=== PATIENT | male | born 1960 | race African-American/Black ===

== ENCOUNTER 2020-06-06 18:09 | Inpatient (IN) | payer BC, OTHER ==
[2020-06-06] MEDS ORDERED: Aspirin 325 MG TAB PO SCH (20:45)
--- NOTE | 2020-06-06 21:05 | PDOC.EVN ---
Event Note - Event Note Event Note: [id number] HP
--- NOTE | 2020-06-06 23:21 | HP ---
CHIEF COMPLAINT: Dizziness and vomiting. HISTORY OF PRESENT ILLNESS: Mr. Clinton is a 59-year-old male with past medical history of cerebrovascular accident, hypertension, hyperlipidemia, presented to an outside emergency room with dizziness and vomiting. The patient states that he was sleeping in his [employer] recliner, suddenly started having severe sense of weakness with disorientation and spinning. He started vomiting and vomiting started for several hours. He had extensive weakness and dis-coordination, unable to walk normally with unsteady gait. The patient had stroke few years ago and had a similar presentation. Workup in the emergency room including CT of the brain, CTA brain and neck, no acute finding. Given patient's presentation, requested to transfer the patient to our medical facility for further management. PAST MEDICAL HISTORY: 1. Hypertension. 2. Hyperlipidemia. 3. CVA, 2017. PAST SURGICAL HISTORY: Foot surgery. FAMILY HISTORY: Brother had cerebrovascular accident/heart disease. SOCIAL HISTORY: The patient currently uses tobacco, smokes cigarettes. He drinks socially every week. HOME MEDICATIONS: Please see home medication reconciliation form for updated medications. ALLERGIES: NO KNOWN ALLERGIES. REVIEW OF SYSTEMS: Review of 14 systems negative except what is mentioned in the history of present illness. PHYSICAL EXAMINATION: GENERAL: The patient is awake, alert, not in acute distress. VITAL SIGNS: Blood pressure 122/67, pulse is 72, respiratory rate is 18, temperature is 98.2, oxygen saturation is 98% on room air. HEAD AND NECK: Normocephalic, atraumatic. Neck is supple. No JVD. CHEST: Fair bilateral air entry. HEART: S1, S2. Regular. ABDOMEN: Soft, nontender. Bowel sounds present. NEURO: The patient is awake, alert, oriented. Speech is normal. No focal motor deficits. No focal sensory deficits. While patient being ambulated in the emergency room, the patient had trouble with ambulation, feeling extremely and almost falling. LABORATORY DATA: WBC 8.3, hemoglobin 13.6, platelets 227. Sodium 137, potassium 4.2, BUN is 15, creatinine 0.8, glucose 136. INR is 1.1. CTA of the head and neck, no evidence of significant stenosis. CT of the brain, no acute intracranial abnormality. Encephalomalacia in the right cerebellar hemisphere related to remote infarction. ASSESSMENT: 1. Cerebrovascular accident, ??, posterior circulation, ? 2. Hypertension. 3. Hyperlipidemia. 4. History of cerebellar stroke. 5. Family history of cerebrovascular accident. PLAN: 1. Admit. 2. Frequent neuro checks. 3. Telemetry monitoring. 4. Aspirin. 5. MRI of the brain. 6. 2D echo. 7. Consult Neurology in a.m. for evaluation and further recommendations. 8. Consult PT, OT for eval and treat. 9. Reconcile home medications. 10. Deep venous thrombosis prophylaxis as appropriate. 11. Expected length of stay at least 1 midnight if patient is stable and further workup negative. Job ID: [id number]
[2020-06-07] MEDS: Sodium Chloride 0.9% 1,000 ML IV SCH ×4 (01:45→23:25)
[2020-06-07] MEDS: Atorvastatin Calcium 40 MG TAB PO SCH ×2 (01:46→21:50)
[2020-06-07 01:55] VITALS: BMI 41.9
[2020-06-07 05:49] LABS: Cardiac Risk 3.3 (Less than 4.5)
[2020-06-07] MEDS: Aspirin 325 mg Enteric Coated Tablet PO SCH (08:51)
[2020-06-07] MEDS: Enoxaparin Sodium 30 MG/0.3 ML SYRINGE SC SCH (08:51)
[2020-06-07] MEDS ORDERED: FLU VACC QS2020-21(6MOS UP)/PF 60 MCG/0.5 ML SYRINGE IM ONE (09:00)
[2020-06-07] MEDS ORDERED: Valsartan 80 MG TAB PO SCH (09:45)
[2020-06-07] MEDS ORDERED: Hydrochlorothiazide 25 MG TAB PO SCH (09:45)
--- NOTE | 2020-06-07 10:08 | MRI ---
MRI Brain WO Con History: Dizziness. Comparison: MRI brain 2017. CT brain prior day. Findings: Old right anterior superior cerebellar infarction. On the diffusion weighted imaging sequen ce there are no abnormal foci of infarct. This is confirmed on the ADC map. On the susceptibility weighted imaging seen with there is no hemorrhage. No midline shift. No mass effect. Corpus callosum is intact. Globes are intact. Marrow signal of the clivus is maintained. Impression: No acute hemorrhage or infarct. Old right superior cerebellar infarction.
[2020-06-07 10:18] LABS: Bacteria/HPF None Seen HPF (None Seen); Bilirubin Negative (Negative); Blood, Urine 2+ (Negative); Clarity Clear (Clear); Glucose, Urine (Dipstick) Normal (Negative); Ketone, Urine Negative (Negative); Leukocyte Negative Leu/uL (Negative); Nitrite Negative (Negative); Protein, Urine (Dipstick) 20 mg/dL (Neg-Trace); Specific Gravity, Urine 1.026 (1.002-1.036); Squamous Epithelial None Seen HPF (0-3); Urobilinogen Normal mg/dL (Less than 2); WBC/HPF 0-3 HPF (0-3)
--- NOTE | 2020-06-07 11:08 | PDOC.HOSPP ---
- Subjective Encounter Date: 06/07/20 Encounter Time: 10:30 Subjective: feels good now, no dizziness or vomiting is eating now, has stood up for passing urine no weakness in any extremity or chest pain or palp says his urine is a bit high colored - Objective Vital Signs & Weight: Vital Signs (12 hours) Temp Pulse Resp BP BP BP Pulse Ox 06/07/20 08:54 154/87 H 185/94 H 06/07/20 07:53 98 F 71 16 131/77 95 06/07/20 04:58 98.1 F 69 16 144/72 H 97 Weight Weight 309 lb 6.4 oz I&O: 06/06/20 06/07/20 06/08/20 06:59 06:59 06:59 Intake Total 1386 Output Total 0 Balance 1386 Hospitalist ROS - Medication Medications: Active Medications Generic Name Dose Route Start Last Admin Trade Name Freq PRN Reason Stop Dose Admin Aspirin 325 mg 06/07/20 09:00 06/07/20 08:51 Aspirin 325 Mg Enteric Coated Tablet PO 325 mg DAILY AURE Administration Atorvastatin Calcium 40 mg 06/06/20 21:00 06/07/20 01:46 Atorvastatin Calcium 40 Mg Tab PO Not Given HS AURE Enoxaparin Sodium 30 mg 06/07/20 09:00 06/07/20 08:51 Enoxaparin Sodium 30 Mg/0.3 Ml Syringe SC 30 mg 0900 AURE Administration Hydrochlorothiazide 25 mg 06/07/20 09:45 06/07/20 10:53 Hydrochlorothiazide 25 Mg Tab PO 06/07/20 12:00 25 mg NOW AURE Administration Sodium Chloride 1,000 mls @ 100 mls/hr 06/06/20 20:45 06/07/20 01:45 Normal Saline 0.9% IV 1,000 mls .Q10H AURE Administration Valsartan 320 mg 06/07/20 09:45 06/07/20 10:52 Valsartan 80 Mg Tab PO 06/07/20 12:00 320 mg NOW AURE Administration - Exam General Appearance: awake alert Eye: PERRL, anicteric sclera ENT: no oropharyngeal lesions, moist mucosa Neck: supple, no JVD Heart: RRR, no murmur Respiratory: no wheezes, no rales Gastrointestinal: soft, non-tender, non-distended, normal bowel sounds Extremities: no cyanosis, no edema Neurological: cranial nerve grossly intact, no focal deficits Psychiatric: normal affect, A&O x 3 Hosp A/P (1) Dizziness Code(s): R42 - DIZZINESS AND GIDDINESS Status: Resolved (2) Nausea & vomiting Code(s): R11.2 - NAUSEA WITH VOMITING, UNSPECIFIED Status: Resolved (3) H/O: CVA (cerebrovascular accident) Code(s): Z86.73 - PRSNL HX OF TIA (TIA), AND CEREB INFRC W/O RESID DEFICITS Status: Chronic (4) Obesity Code(s): E66.9 - OBESITY, UNSPECIFIED Status: Chronic Qualifiers: Obesity classification: adult class 3 (BMI >= 40) Body mass index: BMI 40.0-44.9 (5) Tobacco abuse Code(s): Z72.0 - TOBACCO USE Status: Chronic (6) Dyslipidemia Code(s): E78.5 - HYPERLIPIDEMIA, UNSPECIFIED Status: Chronic (7) Hypertension Code(s): I10 - ESSENTIAL (PRIMARY) HYPERTENSION Status: Chronic Qualifiers: Hypertension type: essential hypertension Qualified Code(s): I10 - Essential (primary) hypertension - Plan MRI does not reveal any ac cva, has old left cerebellar infarct home meds for htn hemo/neurostable likely got dehydrated with vomiting, continue iv fluids ruq usg to r/o cholecystitis may dc home if w/u is -ve and cleared by neurology to amb as tolerated
[2020-06-07 11:42] LABS: SARS-CoV-2 MS2 Positive; SARS-CoV-2 N Gene Negative; SARS-CoV-2 S Gene Negative; SARS-CoV-2 by NAA Not Detected (NotDetected); SARS-CoV-2 orf1ab Negative
--- NOTE | 2020-06-07 16:34 | ULT ---
GALLBLADDER ULTRASOUND: History: Right upper quadrant pain FINDINGS: Real-time imaging of the right upper quadrant shows some questionable minimal sludge within the gallb ladder. The liver shows diffuse increased echogenicity and measures 21.4 cm in length. The common marylou t is 4 mm. Right kidney is normal in size and unobstructed. The pancreas is partially obscured. IMPRESSION: 1. Fatty change of the liver which is slightly enlarged. 2. Questionable minimal gallbladder sludge. POS: OFF
[2020-06-07] MEDS ORDERED: Sodium Chloride 0.9% 500 ML IV SCH (19:00)
[2020-06-07 19:12] LABS: Amphetamine Not Detected (NotDetected); Barbiturates Screen Not Detected (NotDetected); Benzodiazepine Screen Not Detected (NotDetected); Cocaine Metabolite Screen Not Detected (NotDetected); Medtox Control Line Valid? VALID (VALID); Medtox Reader # READER 4; Methadone Not Detected (NotDetected); Methamphetamine Not Detected (NotDetected); Opiate Screen Not Detected (NotDetected); Oxycodone Screen Not Detected (NotDetected); Phencyclidine (PCP) Not Detected (NotDetected); THC/Cannabinoid Screen Not Detected (NotDetected); Tricyclic Screen Not Detected (NotDetected)
[2020-06-07 19:19] LABS: Acetaminophen Less than 6.0 mcg/mL (10.0-30.0); Alcohol Less than 10 mg/dL (Less than 10); Salicylate Less than 8.0 mg/dL (15.0-30.0)
--- NOTE | 2020-06-07 19:38 | CON ---
NEUROLOGY CONSULTATION DATE OF CONSULTATION: 06/07/2020 REASON FOR CONSULTATION: Transient ischemic attack/posterior circulation TIA. HISTORY OF PRESENT ILLNESS: Mr. Clinton is a 59-year-old male with medical history significant for prior CVA in 2017, hypertension, hyperlipidemia presented from an outside emergency room with dizziness as if the room spinning in front of his eyes and vomiting. Per the patient, he was sleeping on his [employer] recliner when suddenly he had a sense of weakness and the room spinning in front of his eyes. This was followed by vomiting for several hours after which he became disoriented and extremely weak and has an unsteady gait. The patient denies focal weakness, focal paresthesias, headache, chest pain, abdominal pain, problems with speech or swallowing, or any abnormal movements associated with the episode. He was brought to the emergency room where a CT scan was done, which was negative for acute intracranial pathology. CT of the head and neck was also unremarkable. Per patient, his symptoms were similar to when he had a CVA in 2017 with a superior cerebellar infarct. He was admitted for further management. REVIEW OF SYSTEMS: All systems were reviewed and were negative except the pertinent positives and negatives mentioned in the HPI. PAST MEDICAL HISTORY: Hypertension, hyperlipidemia, CVA in 2017. PAST SURGICAL HISTORY: Foot surgery. FAMILY HISTORY: Brother had cerebrovascular accident and coronary artery disease. SOCIAL HISTORY: The patient drinks every week. He uses tobacco and smokes cigarettes. ALLERGIES: NO KNOWN DRUG ALLERGIES Vital Signs & Weight: Vital Signs (12 hours) Temp Pulse Resp BP BP BP Pulse Ox 06/07/20 08:54 154/87 H 185/94 H 06/07/20 07:53 98 F 71 16 131/77 95 06/07/20 04:58 98.1 F 69 16 144/72 H 97 Weight Weight 309 lb 6.4 oz I&O: 06/06/20 06/07/20 06/08/20 06:59 06:59 06:59 Intake Total 1386 Output Total 0 Balance 1386 Generic Name Dose Route Start Last Admin Trade Name Freq PRN Reason Stop Dose Admin Aspirin 325 mg 06/07/20 09:00 06/07/20 08:51 Aspirin 325 Mg Enteric Coated Tablet PO 325 mg DAILY AURE Administration Atorvastatin Calcium 40 mg 06/06/20 21:00 06/07/20 01:46 Atorvastatin Calcium 40 Mg Tab PO Not Given HS [facility] Enoxaparin Sodium 30 mg 06/07/20 09:00 06/07/20 08:51 Enoxaparin Sodium 30 Mg/0.3 Ml Syringe SC 30 mg 0900 AURE Administration Hydrochlorothiazide 25 mg 06/07/20 09:45 06/07/20 10:53 Hydrochlorothiazide 25 Mg Tab PO 06/07/20 12:00 25 mg NOW AURE Administration Sodium Chloride 1,000 mls @ 100 mls/hr 06/06/20 20:45 06/07/20 01:45 Normal Saline 0.9% IV 1,000 mls .Q10H AURE Administration Valsartan 320 mg 06/07/20 09:45 06/07/20 10:52 Valsartan 80 Mg Tab PO 06/07/20 12:00 320 mg NOW AURE Administration PHYSICAL EXAMINATION: General Appearance: awake alert Eye: PERRL, anicteric sclera ENT: no oropharyngeal lesions, moist mucosa Neck: supple, no JVD Heart: RRR, no murmur Respiratory: no wheezes, no rales Gastrointestinal: soft, non-tender, non-distended, normal bowel sounds Extremities: no cyanosis, no edema Neurological: Mental status, the patient is alert and oriented to person, place, and time. Recent and remote memory intact. Speech is clear. Motor muscle tone and bulk are normal. Strength 5/5 bilaterally. Sensory intact. Cerebellar, finger-nose testing intact. Gait deferred due to safety reason. DATA REVIEWED: I reviewed the labs and the CT of the brain, which was negative for acute intracranial pathology. MRI of the brain reviewed, which was negative for acute intracranial pathology, but did show encephalomalacia in the right cerebellar hemisphere related to remote infarction. CT of the head and neck was unremarkable. ASSESSMENT AND PLAN: (1) Dizziness Code(s): R42 - DIZZINESS AND GIDDINESS Status: Resolved (2) Nausea & vomiting Code(s): R11.2 - NAUSEA WITH VOMITING, UNSPECIFIED Status: Resolved (3) H/O: CVA (cerebrovascular accident) Code(s): Z86.73 - PRSNL HX OF TIA (TIA), AND CEREB INFRC W/O RESID DEFICITS Status: Chronic (4) Obesity Code(s): E66.9 - OBESITY, UNSPECIFIED Status: Chronic Qualifiers: Obesity classification: adult class 3 (BMI >= 40) Body mass index: BMI 40.0-44.9 (5) Tobacco abuse Code(s): Z72.0 - TOBACCO USE Status: Chronic (6) Dyslipidemia Code(s): E78.5 - HYPERLIPIDEMIA, UNSPECIFIED Status: Chronic (7) Hypertension Code(s): I10 - ESSENTIAL (PRIMARY) HYPERTENSION Status: Chronic Qualifiers: Hypertension type: essential hypertension Qualified Code(s): I10 - Essential (primary) hypertension Mr. Clinton is a 59-year-old male with history significant for prior cerebrovascular accident, hypertension, hyperlipidemia, presented with an episode of dizziness with nausea and vomiting, most likely posterior circulation transient ischemic attack. 1. MRI of the brain reviewed, which was negative for acute intracranial pathology. 2. CT of the head and neck was done which did not reveal hemodynamically significant stenosis. 3. 2D echocardiogram shows ejection fraction of 60% to 65%, no thrombus or PFO. Continue neuro checks every 4 hours. 4. Continue telemetry. 5. Strict control of blood pressure and blood glucose blood glucose. 6. Continue home medications. 7. Continue medical management per primary team,. 8. PT/OT/speech. 9. The patient has been compliant with aspirin, so switched to Plavix. 10. Start high-intensity statin for secondary stroke prevention. 11. We will continue to follow. Thank you for the consult. Job ID: [id number]
[2020-06-08] MEDS: Sodium Chloride 0.9% 1,000 ML IV SCH (04:17)
[2020-06-08] MEDS ORDERED: Clopidogrel Bisulfate 75 MG TAB PO SCH (09:00)
[2020-06-08] MEDS ORDERED: Valsartan 80 MG TAB PO SCH (09:00)
[2020-06-08] MEDS ORDERED: Ezetimibe 10 MG TAB PO SCH (09:00)
[2020-06-08] MEDS ORDERED: Hydrochlorothiazide 25 MG TAB PO SCH (09:00)
[2020-06-08] MEDS: Enoxaparin Sodium 30 MG/0.3 ML SYRINGE SC SCH (11:36)
[2020-06-08] MEDS: Aspirin 325 mg Enteric Coated Tablet PO SCH (11:36)
--- NOTE | 2020-06-08 11:37 | NM ---
Exam: Nuclear medicine cardiac stress with EF and wall motion HISTORY: Coronary disease. Chest pain. Smoker. TECHNIQUE: Stress imaging only was performed. Patient was administered 30.40 mCi of technetium 99m se stamibi intravenously FINDINGS: Homogeneous distribution of the radiotracer End-diastolic volume is 140 mL End-systolic volume is 67 mL Cardiac gating: Normal wall motion and thickening. 52% ejection fraction IMPRESSION: 1. Homogeneous distribution of the radiotracer. 2. Left ventricular prominence 3. 52% ejection fraction
--- NOTE | 2020-06-08 12:23 | PDOC.NEUPN ---
- Subjective Encounter Date: 06/08/20 Subjective: Mr. Clinton feels better today and denies any new complaints. - Objective Vital Signs & Weight: Vital Signs (12 hours) Temp Pulse Resp BP Pulse Ox 06/08/20 11:46 98 F 80 16 146/91 H 97 06/08/20 08:00 98.3 F 60 16 131/69 98 06/08/20 03:18 97.9 F 67 20 118/73 96 Weight Weight 309 lb 6.4 oz I&O: 06/07/20 06/08/20 06/09/20 06:59 06:59 06:59 Intake Total 1386 3928 360 Output Total 0 2750 Balance 1386 1178 360 Radiology Reviewed by me: Yes EKG Reviewed by me: Yes ROS - Review of Systems Constitutional: denies: fever, chills, sweats, weakness, malaise, other Eyes: denies: pain, vision change, conjunctivae inflammation, eyelid inflammation, redness, other ENT: denies: ear pain, ear discharge, nose pain, nose discharge, nose congestion, mouth pain, mouth swelling, throat pain, throat swelling, other Respiratory: denies: cough, dry, shortness of breath, hemoptysis, SOB with excertion, pleuritic pain, sputum, wheezing, other Cardiovascular: reports: Syncope. denies: no pertinent history, AFIB, CAD, CHF, HTN, [place], Hyperlipidemia, Mitral valve stenosis, Aortic stenosis, Valve insufficiency, Pulmonary hypertension, Other Gastrointestinal: reports: nausea, vomiting, other (dizziness) Genitourinary: denies: dysuria, frequency, incontinence, hematuria, retention, other Musculoskeletal: denies: neck pain, shoulder pain, arm pain, back pain, hand pain, leg pain, foot pain, other Skin: denies: rash, lesions, eloy, bruising, other Neurological: denies: weakness, numbness, incoordination, change in speech, confusion, seizures, other All Systems: All other systems reviewed; all pertinent +/- noted in HPI/Subj - Medication Medications: Active Medications Generic Name Dose Route Start Last Admin Trade Name Freq PRN Reason Stop Dose Admin Aspirin 325 mg 06/07/20 09:00 06/08/20 11:36 Aspirin 325 Mg Enteric Coated Tablet PO 325 mg DAILY AURE Administration Atorvastatin Calcium 40 mg 06/06/20 21:00 06/07/20 21:50 Atorvastatin Calcium 40 Mg Tab PO 40 mg HS AURE Administration Clopidogrel Bisulfate 75 mg 06/08/20 09:00 06/08/20 11:35 Clopidogrel Bisulfate 75 Mg Tab PO 75 mg DAILY AURE Administration Ezetimibe 10 mg 06/08/20 09:00 06/08/20 11:36 Ezetimibe 10 Mg Tab PO 10 mg DAILY AURE Administration Enoxaparin Sodium 30 mg 06/07/20 09:00 06/08/20 11:36 Enoxaparin Sodium 30 Mg/0.3 Ml Syringe SC 30 mg 0900 AURE Administration Sodium Chloride 1,000 mls @ 100 mls/hr 06/06/20 20:45 06/08/20 04:17 Normal Saline 0.9% IV 1,000 mls .Q10H AURE Administration Metoprolol Succinate 50 mg 06/08/20 09:00 06/08/20 11:36 Metoprolol Succinate Xl 50 Mg Tab PO 50 mg DAILY AURE Administration Valsartan 320 mg 06/08/20 09:00 06/08/20 11:36 Valsartan 80 Mg Tab PO 320 mg DAILY AURE Administration - Exam General Appearance: awake alert Eye: PERRL ENT: normocephalic atraumatic Neck: supple Respiratory: CTAB Cardiovascular: RRR Gastrointestinal: soft Extremities: no cyanosis Skin: normal turgor Neurological: CN's grossly intact, normal sensation to touch, no weakness, no focal deficits, no new deficit Musculoskeletal: normal tone, normal strength, no muscle wasting PSYCH: normal affect, normal behavior, A&O x 3, oriented to person, oriented to place, oriented to time Results - Labs Lab results: Troponin I Less than 0.010 ng/mL (< 0.028) 06/07/20 21:48 Urine Ketones Negative mg/dL (Negative) 06/07/20 10:00 Urine Blood 2+ (Negative) A 06/07/20 10:00 Urine Nitrite Negative (Negative) 06/07/20 10:00 Ur Leukocyte Esterase Negative Danni/uL (Negative) 06/07/20 10:00 Urine RBC 4-6 HPF (0-3) A 06/07/20 10:00 Urine WBC 0-3 HPF (0-3) 06/07/20 10:00 Ur Squamous Epith Cells None Seen HPF (0-3) 06/07/20 10:00 Urine Bacteria None Seen HPF (None Seen) 06/07/20 10:00 - EKG Interpretation EKG: Normal sinus rhythm - Radiology Interpretation MRI - head Status: image reviewed by me, report reviewed by me Additional Comment: MRI brain reviewed which not reveal any acute intracranial pathology. PN A/P (1) TIA (transient ischemic attack) Code(s): G45.9 - TRANSIENT CEREBRAL ISCHEMIC ATTACK, UNSPECIFIED Status: Acute (2) H/O: CVA (cerebrovascular accident) Code(s): Z86.73 - PRSNL HX OF TIA (TIA), AND CEREB INFRC W/O RESID DEFICITS Status: Chronic (3) Nausea & vomiting Code(s): R11.2 - NAUSEA WITH VOMITING, UNSPECIFIED Status: Resolved (4) Dyslipidemia Code(s): E78.5 - HYPERLIPIDEMIA, UNSPECIFIED Status: Chronic (5) Hypertension Code(s): I10 - ESSENTIAL (PRIMARY) HYPERTENSION Status: Chronic Qualifiers: Hypertension type: essential hypertension Qualified Code(s): I10 - Essential (primary) hypertension - Plan Daily Plan: plan discussed w/ family, PT/OT, out of bed/ambulate 59-year-old male with history significant for prior stroke, hypertension and hyperlipidemia presented with acute onset dizziness. Dizziness improved but according to the patient it seems the symptoms were exactly similar to his prior stroke in 2017. MRI of the brain negative for acute intracranial process -most likely TIA. MRI of the brain reviewed which was negative for acute intracranial pathology. CT head reviewed which was negative for acute intracranial pathology. CTA of the head and neck did not reveal hemodynamically significant stenosis. 2D echo completed. Essentially unremarkable with no thrombus or PFO. Neurochecks every 4 hours. Strict control of blood glucose and blood pressure. Add Plavix. Continue aspirin and high intensity statin for secondary stroke prevention. Telemetry Cardiac stress test completed results pending. PT/OT Continue medical management per primary team. Plan discussed in detail with the patient, mother, primary attending Dr. Rowe and during stroke rounds.
[2020-06-08 15:36] VITALS: BP 157/91; TEMP 99
--- NOTE | 2020-06-08 20:55 | CON ---
DATE OF CONSULTATION: HISTORY OF PRESENT ILLNESS: The patient is a 59-year-old gentleman, who presents with dizziness. The patient has a previous history of a cerebrovascular accident in 2017. He had a CVA. The patient presented with weakness, nausea, and vomiting. The patient had a complete recovery. The patient was in his usual state of health when he suddenly once again became dizzy. He became nauseated as well. The patient denied having any chest discomfort or palpitations. PAST MEDICAL HISTORY: Significant for; 1. Hypertension. 2. Dyslipidemia. 3. CVA. 4. Fatty liver. PAST SURGICAL HISTORY: Foot surgery. SOCIAL HISTORY: Nonsmoker. MEDICATIONS: 1. HCT 25 daily. 2. Valsartan 320 daily. 3. Pravachol 80 at bedtime. 4. Toprol 50 XL daily. 5. Zetia 10 daily. 6. Allopurinol 200 daily. 7. Plavix 75 daily. 8. Aspirin 325 daily. REVIEW OF SYSTEMS: Ten-point system otherwise unremarkable. PHYSICAL EXAMINATION: GENERAL/VITAL SIGNS: Obese gentleman, in no acute distress, with a blood pressure of 146/91. NECK: No jugular venous distention. LUNGS: Clear to auscultation. HEART: Regular rate and rhythm. Normal S1 and S2. No murmurs. ABDOMEN: Nondistended. EXTREMITIES: Show no edema. VASCULAR: Radial pulses are 2+. LABORATORY RESULTS: Revealed him to have a white blood cell count of 8.3, hemoglobin 13.6, hematocrit 42.1, and platelets are 227. Sodium 137, potassium 4.2, chloride 102, bicarbonate 21, BUN 15, creatinine 0.82. Troponin was 0.026. His echocardiogram revealed normal left ventricular ejection fraction at 60% to 65% and left ventricular hypertrophy with diastolic dysfunction. Cardiolite stress test, the patient exercised for 5 minutes on Lefty protocol and he did not develop chest pain. There was short run of nonsustained ventricular tachycardia. There was no significant ST depression. The test is negative by ECG criteria for ischemia. IMPRESSION: 1. Dizziness. 2. Nonsustained ventricular tachycardia during stress testing. 3. History of CVA. 4. Dyslipidemia. 5. Hypertension. 6. Ethanol abuse. This gentleman presented with dizziness. He was being evaluated for recurrent CVA. From a cardiac standpoint, He had a short run of nonsustained ventricular tachycardia. There is no evidence of left ventricular dysfunction or ischemia on stress testing. We will continue beta racquel therapy. The patient need to decrease consumption of ethanol. From a cardiac standpoint, he is on appropriate cardiac medications. We will follow this patient with you through his hospitalization. Job ID: [id number]
--- NOTE | 2020-06-09 15:01 | PDOC.DS.DS ---
Provider - Provider Date of Admission: 06/07/20 18:41 Admitting Provider: Bobbi Gilbert MD Primary Care Physician: Willy White MD Course - Hospital Course Hospital Course: 59 yo male with a history of prior CVA who presented via the ED reporting dizziness and vomiting. There was concern for possible posterior circulation CVA. CT was negative for acute findings. Labs were largely unremarkable. He was admitted to the hospital and seen in consultation by Cardiology and Neuro. He had an MRI with no acute findings. He has a stress test with no ischemia. Echo was essentially normal. He did have a short run of NSVT during the stress test, but had normal ventricular function and no additional workup was indicated. He telemetry was otherwise normal. His serial enzymes were normal. His symptoms completely resolved. - Labs Lab Results: Abnormal Lab Results - Last 48 hrs 06/07/20 18:52: Salicylates Less than 8.0 L, Acetaminophen Less than 6.0 L - Physical Exam Vitals: Weight Weight 309 lb 6.4 oz Physical Exam: The patient was seen and examined on the day of discharge. Problem - Problem (1) TIA (transient ischemic attack) Code(s): G45.9 - TRANSIENT CEREBRAL ISCHEMIC ATTACK, UNSPECIFIED Status: Acute (2) Dyslipidemia Code(s): E78.5 - HYPERLIPIDEMIA, UNSPECIFIED Status: Chronic (3) H/O: CVA (cerebrovascular accident) Code(s): Z86.73 - PRSNL HX OF TIA (TIA), AND CEREB INFRC W/O RESID DEFICITS Status: Chronic (4) Hypertension Code(s): I10 - ESSENTIAL (PRIMARY) HYPERTENSION Status: Chronic Qualifiers: Hypertension type: essential hypertension Qualified Code(s): I10 - Essential (primary) hypertension (5) Obesity Code(s): E66.9 - OBESITY, UNSPECIFIED Status: Chronic Qualifiers: Obesity classification: adult class 3 (BMI >= 40) Body mass index: BMI 40.0-44.9 (6) Tobacco abuse Code(s): Z72.0 - TOBACCO USE Status: Chronic (7) Dizziness Code(s): R42 - DIZZINESS AND GIDDINESS Status: Resolved (8) Nausea & vomiting Code(s): R11.2 - NAUSEA WITH VOMITING, UNSPECIFIED Status: Resolved - Time spent with Patient (mins): 35 (Discharge activities) Plan - Discharge Medications Prescriptions: Meclizine HCl [Antivert] 25 mg PO QID PRN #30 tab PRN Reason: Dizziness Aspirin [Aspirin EC] 325 mg PO DAILY #30 tablet. Clopidogrel Bisulfate [Plavix] 75 mg PO DAILY #30 tab Home Medications: Medication Instructions Recorded Confirmed Type Ezetimibe [Zetia] 10 mg PO DAILY 08/27/16 06/07/20 History Metoprolol Succinate [Toprol XL] 50 mg PO DAILY 08/27/16 06/07/20 History Pravastatin Sodium 80 mg PO HS 08/27/16 06/07/20 History Allopurinol 200 mg PO DAILY 06/07/20 06/07/20 History Clopidogrel Bisulfate [Plavix] 75 mg PO DAILY #30 tab 06/07/20 Rx Hydrochlorothiazide 25 mg PO DAILY 06/07/20 06/07/20 History Valsartan 320 mg PO DAILY 06/07/20 06/07/20 History Aspirin [Aspirin EC] 325 mg PO DAILY #30 tablet. 06/08/20 Rx Meclizine HCl [Antivert] 25 mg PO QID PRN #30 tab 06/08/20 Rx Allergies: No Known Drug Allergies Allergy (Verified 06/07/20 01:04) - Discharge Instructions Discharge Instructions:: To check BP and pulse twice daily and record for 10 days to f/u with PCP Activity:: Activity as Tolerated Nourishment:: Heart Healthy Diet, Low Sodium Diet - Follow up Plan Referrals: Willy White MD [Primary Care Provider] - 10 Days Hardik Arvizu MD [Active] - 14 Days Manav Cameron MD [Active] - 06/09/21 9:00 am (FOLLOWUP IN 1 YEAR APPOINTMENT MADE.) Disposition: HOME Quality - Care Measures CORE MEASURES:: Stroke/TIA - Stroke/TIA Did you prescribe antithrombotic therapy?: Yes Did you prescribe anticoagulant for A Fib/Flutter?: No Specify reason for no DC anticoagulant: Treatment not indicated Did you prescribe a statin medication?: Yes
--- NOTE | 2020-06-10 09:04 | DIS ---
DATE OF ADMISSION: 06/07/2020 DATE OF DISCHARGE: 06/08/2020 DISCHARGE DISPOSITION: Home. PRIMARY DISCHARGE DIAGNOSES: Dizziness, nausea, vomiting, resolved. Initial suspicion for transient ischemic attack, resolved. SECONDARY DISCHARGE DIAGNOSES: History of cerebrovascular accident, obesity, hypertension, tobacco abuse, dyslipidemia. PROCEDURES DONE DURING HOSPITALIZATION: MRI brain showed old right superior cerebellar infarct. No acute infarct or hemorrhage was seen. Right upper quadrant ultrasound done showed fatty change of liver with enlargement of liver measuring 21 cm, common duct was 4 mm, minimal gallbladder sludge. Echo with 2D Doppler showed EF of 60% to 65%. Total cholesterol 150, triglycerides 77, LDL 90, HDL 45. CT angio of brain and neck was unremarkable. No significant stenosis was seen. No intracranial abnormalities were seen. DISCHARGE MEDICATIONS: 1. Allopurinol 200 mg p.o. daily. 2. Hydrochlorothiazide 25 mg p.o. daily. 3. Pravachol 80 mg p.o. at bedtime. 4. Toprol-XL 50 mg p.o. daily. 5. Valsartan 320 mg p.o. daily. 6. Zetia 10 mg p.o. daily. 7. Aspirin 325 mg p.o. daily. ALLERGIES: NO KNOWN DRUG ALLERGIES. DISCHARGE PLAN: The patient to follow up with Dr. White, his primary care physician in 1 week. He has been advised to check blood pressure and pulse twice daily and record for 10 days to follow up with his primary care physician. BRIEF COURSE DURING HOSPITALIZATION: Patient initially got admitted on the 24th evening with complaints of dizziness, nausea, and vomiting. In view of prior history of CVA with multiple risk factors, the patient was placed under observation on stroke unit to rule out posterior circulation CVA. The patient has had CT brain and CT angio of brain and neck, which has not revealed any acute infarct. MRI brain showed no acute infarct. It showed old right cerebellar CVA. His nausea, vomiting, and dizziness haves completely resolved. The patient likely had moderate dehydration, which has resolved with IV fluids. He is hemodynamically stable and will be shortly discharged home. Please note I have seen and examined the patient on the day of discharge. The patient's echo revealed ejection fraction of 60% to 65% with mild concentric LVH. The patient's BMI is 42 and has been counseled to lose weight. Please see a [id number] documentation for the day of discharge on [facility]. Please note patient remained in patient for another day for stress test as he continued to have dizziness on mobilization. Job ID: [id number] MTDD
== END 2020-06-08 16:12 | disposition home or self-care (01) | DRG 69 ==
LOC: ERS 18:09 → 2SE 20:17 → OBSVTOIN 06-07 18:41
PROVIDERS: ADMIT Internal Medicine; ATTEND Internal Medicine
DX: G45.9 Transient cerebral ischemic attack, unspecified (principal); I47.2 Ventricular tachycardia; Z68.41 Body mass index [BMI] 40.0-44.9, adult; F10.10 Alcohol abuse, uncomplicated; E78.5 Hyperlipidemia, unspecified; I10 Essential (primary) hypertension; F17.210 Nicotine dependence, cigarettes, uncomplicated; E66.9 Obesity, unspecified; K76.0 Fatty (change of) liver, not elsewhere classified; Z79.01 Long term (current) use of anticoagulants; Z86.73 Personal history of transient ischemic attack (TIA), and cerebral infarction without residual deficits; Z79.82 Long term (current) use of aspirin; Z79.899 Other long term (current) drug therapy
CPT/HCPCS: 36415; 70551; 76705; 78452; 80061; 80306; 80307; 81003; 81015; 84484; 87635; 93017; 93306; 94760; 96360; 96361; 96372; A9500; G0378; J1650; U0003